=== PATIENT | male | born 1980 | race Caucasian/White ===

== ENCOUNTER → 2017-07-14 | Outpatient (REF) | payer OTHER ==
[2017-07-14 13:04] LABS: PLATELET COUNT, AUTOMATED 211 K/uL (150-450)
== END ==
LOC: ZZSTITCHES 12:56
PROVIDERS: ATTEND Physician Assistant
DX: R30.0 Dysuria (principal); N41.9 Inflammatory disease of prostate, unspecified
CPT/HCPCS: 82040; 82247; 82310; 82374; 82435; 82565; 82947; 84075; 84132; 84155; 84295; 84450; 84460; 84520; 85025; 87088